=== PATIENT | female | born 1945 | race Caucasian/White ===

== ENCOUNTER 2022-08-21 11:42 | Emergency (ER) | payer OTHER, MEDICARE ==
[~2022-08-21] VITALS: Ht 162.6 cm; Wt 88.0 kg
[2022-08-21 11:50] VITALS: BP 168/79
[2022-08-21 11:59] LABS: BILIRUBIN,URINE NEGATIVE (NEGATIVE); COLOR,URINE YELLOW; GLUCOSE, URINE (UA) NEGATIVE (NEGATIVE); KETONES,URINE NEGATIVE (NEGATIVE); LEUKOCYTE ESTERASE ,URINE NEGATIVE (NEGATIVE); NITRITE,URINE POSITIVE (NEGATIVE); PROTEIN,URINE NEGATIVE (NEGATIVE)
[2022-08-21] MEDS ORDERED: KETOROLAC 30 MG/ML VIAL IM STA (12:01)
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
[2022-08-21 12:07] LABS: BACTERIA,URINE LARGE /HPF; CLARITY,URINE CLOUDY
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
[2022-08-21] MEDS ORDERED: IBUP-1780 PO (13:04)
[2022-08-21] MEDS ORDERED: NITR100C10 PO (13:17)
== END 2022-08-21 13:21 | disposition home or self-care (01) ==
LOC: ER FS 11:45
DX: S16.1XXA Strain of muscle, fascia and tendon at neck level, initial encounter (principal); S20.212A Contusion of left front wall of thorax, initial encounter; M25.511 Pain in right shoulder; R10.31 Right lower quadrant pain; R82.71 Bacteriuria; V43.53XA Car driver injured in collision with pick-up truck in traffic accident, initial encounter; Y92.410 Unspecified street and highway as the place of occurrence of the external cause
CPT/HCPCS: 70450; 71250; 72125; 73030; 74176; 81000; 87077; 87088